=== PATIENT | female | born 1990 | race African-American/Black ===

== ENCOUNTER 2017-10-23 10:27 | Emergency (ER) | payer SELFPAY ==
[2017-10-23] MEDS ORDERED: Albuterol Sulfate 2.5 mg/0.5 ml Neb ONE (10:49)
== END 2017-10-23 11:28 | disposition home or self-care (01) ==
LOC: SCSER 10:27
DX: J10.1 Influenza due to other identified influenza virus with other respiratory manifestations (principal)
CPT/HCPCS: 87804; 94640; J7611

== ENCOUNTER 2020-03-20 19:14 | Emergency (ER) | payer OTHER, SELFPAY ==
[2020-03-20] MEDS ORDERED: Dexamethasone 10 MG/ML VIAL ONE (20:43)
== END 2020-03-20 20:53 | disposition home or self-care (01) ==
LOC: ERS 19:14
DX: J02.9 Acute pharyngitis, unspecified (principal)
CPT/HCPCS: 87081; 87430; 99283; J1100